=== PATIENT | female | born 1990 | race Caucasian/White ===

== ENCOUNTER 2020-05-07 23:20 | Emergency (ER) | payer OTHER ==
[~2020-05-07 23:20] MED LIST: AUGMENTIN 875-1 EACH PO; COLACE100 MG PO; DEPAKOTE500 MG PO; KEPPRA 500 MG500 MG PO; KEPPRA500 MG PO; MAGNESIUM CITR296 ML PO
[2020-07-17] MEDS ORDERED: SUBOXONE 8 MG-1 EACH SL (07:43)
[2020-07-17] MEDS ORDERED: KEPPRA750 MG PO (07:43)
== END 2020-05-07 23:50 | disposition home or self-care (01) ==
LOC: ER1 23:20
DX: R07.9 Chest pain, unspecified (principal); Z53.21 Procedure and treatment not carried out due to patient leaving prior to being seen by health care provider

== ENCOUNTER → 2020-05-08 | Outpatient (CLI) | payer OTHER ==
[~2020-05-08] MED LIST changes: +KEPPRA750 MG PO; +SUBOXONE 8 MG-1 EACH SL
== END ==
LOC: RAD 12:53
DX: R05 Cough (principal)
CPT/HCPCS: 71046

== ENCOUNTER → 2020-05-15 | Outpatient (CLI) | payer OTHER | LOC: US 10:06 | DX: R10.811 Right upper quadrant abdominal tenderness (principal) | CPT/HCPCS: 76705 ==

== ENCOUNTER 2020-06-29 21:54 | Emergency (ER) | payer OTHER ==
[~2020-06-29 21:54] MED LIST changes: -KEPPRA750 MG PO; -SUBOXONE 8 MG-1 EACH SL
[2020-06-30 00:05] LABS: HEMOGLOBIN 13.7 gm/dl (12.3-15.3); RED BLOOD COUNT 4.4 M/UL (4.00-5.10); WHITE BLOOD COUNT 9.9 K/UL (4.5-11.0)
[2020-06-30 00:25] LABS: BUN/CREATININE RATIO 20 (0-10)
[2020-07-17] MEDS ORDERED: SUBOXONE 8 MG-1 EACH SL (07:43)
[2020-07-17] MEDS ORDERED: KEPPRA750 MG PO (07:43)
== END 2020-06-30 01:59 | disposition home or self-care (01) ==
LOC: ER1 21:54
PROVIDERS: Physician Assistant
DX: R10.11 Right upper quadrant pain (principal); F17.210 Nicotine dependence, cigarettes, uncomplicated; Z79.899 Other long term (current) drug therapy
CPT/HCPCS: 36415; 80053; 81001; 82150; 83690; 84703; 85025; 99284; Q9967

== ENCOUNTER → 2020-07-17 | Day surgery (SDC) | payer OTHER ==
[~2020-07-17] MED LIST changes: +KEPPRA750 MG PO; +SUBOXONE 8 MG-1 EACH SL
== END | disposition home or self-care (01) ==
LOC: OR 06:53
PROVIDERS: Internal Medicine Gastroenterology
PROC: 0DB78ZX Excision of Stomach, Pylorus, Via Natural or Artificial Opening Endoscopic, Diagnostic (ICD-10-PCS; 2020-07-17)
PROC: 0DB68ZX Excision of Stomach, Via Natural or Artificial Opening Endoscopic, Diagnostic (ICD-10-PCS; principal; 2020-07-17 08:00)
DX: K29.50 Unspecified chronic gastritis without bleeding (principal); K25.9 Gastric ulcer, unspecified as acute or chronic, without hemorrhage or perforation; G40.909 Epilepsy, unspecified, not intractable, without status epilepticus; F17.200 Nicotine dependence, unspecified, uncomplicated; K59.09 Other constipation; K59.03 Drug induced constipation; T40.2X5A Adverse effect of other opioids, initial encounter; J44.9 Chronic obstructive pulmonary disease, unspecified; B19.20 Unspecified viral hepatitis C without hepatic coma; Z20.822 Contact with and (suspected) exposure to COVID-19; Z79.899 Other long term (current) drug therapy
CPT/HCPCS: 36415; 80076; 82150; 83690; 84703; J2704; J7040

== ENCOUNTER 2020-11-26 20:12 | Emergency (ER) | payer OTHER ==
[2020-11-26 21:27] LABS: RED BLOOD COUNT 4.14 M/UL (4.00-5.10); WHITE BLOOD COUNT 7.8 K/UL (4.5-11.0)
[2020-11-26 21:56] LABS: BUN/CREATININE RATIO 10 (0-10)
== END 2020-11-27 00:17 | disposition home or self-care (01) ==
LOC: ER1 20:12
PROVIDERS: Family Medicine
DX: R51.9 Headache, unspecified (principal); H53.8 Other visual disturbances; F17.200 Nicotine dependence, unspecified, uncomplicated; Z79.899 Other long term (current) drug therapy; R03.0 Elevated blood-pressure reading, without diagnosis of hypertension
CPT/HCPCS: 70450; 80048; 85025; 96374; 96375; 99284; J1200; J1885; J2405; J2765

== ENCOUNTER → 2021-01-24 | Outpatient (CLI) | payer OTHER | LOC: HEART 5 11:00 | DX: R07.9 Chest pain, unspecified (principal) | CPT/HCPCS: 93306 ==

== ENCOUNTER → 2021-04-16 | Outpatient (CLI) | payer OTHER | LOC: KOH-I 13:00 → EMI 13:00 | DX: G45.9 Transient cerebral ischemic attack, unspecified (principal); H53.8 Other visual disturbances; R20.2 Paresthesia of skin | CPT/HCPCS: 70551 ==

== ENCOUNTER → 2021-05-07 | Outpatient (CLI) | payer OTHER | LOC: KOH-I 09:27 | DX: M75.102 Unspecified rotator cuff tear or rupture of left shoulder, not specified as traumatic (principal) | CPT/HCPCS: 73221 ==

== ENCOUNTER → 2021-05-24 | Day surgery (SDC) | payer OTHER ==
[~2021-05-24] MED LIST changes: +BRINTELLIX5 MG PO; +CRESTOR5 MG PO; +DOXEPIN HCL10 MG PO; +FAMOTIDINE20 MG PO; +HYDROXYZINE HCL25 MG PO; +LOW DOSE ASPIRI81 MG PO; +MIRALAX 119 GR119 GM PO; +TRICOR 48 MG TA48 MG PO; +[UNRECOGNIZED DRUG - OTHER] INJ
== END | disposition home or self-care (01) ==
LOC: OR 05:34
DX: M75.52 Bursitis of left shoulder (principal); M25.812 Other specified joint disorders, left shoulder; U07.1 COVID-19; K21.9 Gastro-esophageal reflux disease without esophagitis; F11.20 Opioid dependence, uncomplicated; E78.5 Hyperlipidemia, unspecified; F17.290 Nicotine dependence, other tobacco product, uncomplicated; Z91.018 Allergy to other foods; Z79.82 Long term (current) use of aspirin; Z79.899 Other long term (current) drug therapy; Z53.8 Procedure and treatment not carried out for other reasons
CPT/HCPCS: J7120; U0002

== ENCOUNTER → 2021-06-07 | Day surgery (SDC) | payer OTHER | END | disposition home or self-care (01) | LOC: OR 07:46 | DX: M75.42 Impingement syndrome of left shoulder (principal); M65.812 Other synovitis and tenosynovitis, left shoulder; M75.52 Bursitis of left shoulder; M25.812 Other specified joint disorders, left shoulder; U07.1 COVID-19; F17.210 Nicotine dependence, cigarettes, uncomplicated; F11.21 Opioid dependence, in remission; Z98.51 Tubal ligation status | CPT/HCPCS: C1713; J0171; J0690; J1100; J1885; J2001; J2250; J2405; J2704; J2710; J2795; J3010; J7120 ==

== ENCOUNTER → 2021-08-05 | Outpatient (CLI) | payer OTHER | LOC: EMI 07-29 09:00 | DX: R90.89 Other abnormal findings on diagnostic imaging of central nervous system (principal); E78.5 Hyperlipidemia, unspecified; G93.9 Disorder of brain, unspecified | CPT/HCPCS: 70553; A9577 ==

== ENCOUNTER → 2021-08-16 | Outpatient (CLI) | payer OTHER | LOC: US 09:30 | DX: R16.0 Hepatomegaly, not elsewhere classified (principal) | CPT/HCPCS: 76705 ==

== ENCOUNTER → 2021-08-21 | Outpatient (CLI) | payer OTHER | LOC: LAB 14:41 | DX: R16.0 Hepatomegaly, not elsewhere classified (principal) | CPT/HCPCS: 36415; 80076 ==